=== PATIENT | female | born 1955 | race Caucasian/White ===

== ENCOUNTER → 2016-09-08 | Outpatient (CLI) | payer MEDICARE, OTHER ==
[2016-09-08 08:58] VITALS: BP 107/74; PULSE 78; RESP 16; TEMP 97.6; BMI 48.6
[2016-09-08 11:52] LABS: Anisocytosis Slight; CHCM 30.2; HCT 44.2 % (34.0-46.0); HDW 2.62; HGB 13.8 gm/dL (11.4-16.0); Hypochromasia Marked; MCHC 31.2 g/dL (31.0-37.0); MCV 89.6 fL (80.0-100.0); Mean Platelet Volume 8.3; RBC 4.93 m/uL (3.80-5.40); RDW 16.2 % (11.5-15.5); WBC 6.8 k/uL (3.8-10.6)
[2016-09-08 12:17] LABS: ALT 52 U/L (9-52); AST 73 U/L (14-36); Alkaline Phosphatase 87 U/L (38-126); Anion Gap 10 mmol/L; Blood Urea Nitrogen 15 mg/dL (7-17); Calcium 9.6 mg/dL (8.4-10.2); Carbon Dioxide 28 mmol/L (22-30); Chloride 103 mmol/L (98-107); Cholesterol 184 mg/dL (<200); Glucose 248 mg/dL (74-99); HDL Cholesterol 51 mg/dL (40-60); Iron 63 ug/dL (37-170); Non-African American GFR(MDRD) >60 (>60 ml/min/1.73 sqM); Potassium 5.5 mmol/L (3.5-5.1); Sodium 141 mmol/L (137-145); Total Protein 7.6 g/dL (6.3-8.2); Triglycerides 139 mg/dL (<150)
[2016-09-08 12:26] LABS: % Iron Saturation 17.6 % (20-50); Total Iron Binding Capacity 358 ug/dL (265-497)
[2016-09-08 13:21] LABS: Vitamin B12 300 pg/mL (239-931)
[2016-09-08 13:33] LABS: Hemoglobin A1C 8.5 % (4.2-6.1)
--- NOTE | 2016-09-15 17:16 | P.GSHP ---
History of Present Illness H&P Date: 09/08/16 Chief Complaint: Morbid obesity BMI 48 59 years old female with morbid obesity BMI 45, height 5 feet 6.25 inches, weight 127.45 KG presents for bariatric surgery consultation. Her ideal body weight based upon height is 59.4 kg . Patient has elected to undergo laparoscopic Alba-en-Y gastric bypass surgery. She has attended weight loss seminar. She has attempted nonsurgical weight loss with special diets . She has lost some weight but is unable to maintain sustained results. Her comorbid conditions include type 2 diabetes mellitus, obstructive sleep apnea, hypertension, history of PE, depression, coronary artery dease status post cardiac stents and pacemaker and skin cancer. She underwent EGD which showed Hill grade 1 hiatal hernia, distal esophagitis showing Veronica's changes without any dysplasia. H. pylori was negative. Had most of her workup done in 2016 however she did not follow through for surgery Height 5 feet 6.25 inches [place] body weight 59.4 kg Preoperative visit #1 03/26/2015, weight 127.45 KG, BMI 45 Preoperative visit #2 09/17/2015, weight 138.85 KG, BMI 49 Preoperative visit #3 09/08/2016, weight 137.5 KG, BMI 48 - Review of Systems Comment: Constitutional: Denies fever, weight loss or loss of appetite HEENT: No difficulty in vision or hearing. Denies dysphagia. Cardiovascular: Denies chest pain, palpitations, dizziness, shortness of breath. Respiratory: No history of asthma or COPD Gastrointestinal: No recent change in bowel habits, no abdominal pain, no nausea or vomiting. Integumentary: No history of DVT Genitourinary: No urinary incontinence, hematuria or dysuria Neurologic: No seizures, denies weakness in upper or lower extremities Musculoskeletal: Occasional left knee pain. Psychiatry: Known history of depression, no suicidal ideation, no anxiety or psychosis Past Medical History Past Medical History: Cancer, Diabetes Mellitus, Hypertension, Pulmonary Embolus (PE) Additional Past Medical History / Comment(s): skin cancer on face, PE yrs. ago History of Any Multi-Drug Resistant Organisms: None Reported Past Surgical History: Section, Cholecystectomy, Heart Catheterization , Heart Catheterization With Stent, Pacemaker Additional Past Surgical History / Comment(s): cyst r foot, carpal tunnel both hands, pacemaker insertion 2013 Past Anesthesia/Blood Transfusion Reactions: No Reported Reaction Date of Last Stent Placement:: 05/30/14 Type of Cardiac Device: Permanent Pacemaker Device Placement Date:: 05/30/13 Past Psychological History: Depression Smoking Status: Never smoker Past Alcohol Use History: Occasional Past Drug Use History: None Reported - Past Family History Father Family Medical History: Cancer, Coronary Artery Disease (CAD) Additional Family Medical History / Comment(s): skin Mother Family Medical History: Diabetes Mellitus, Renal Disease Brother(s) Family Medical History: Deep Vein Thrombosis (DVT) Medications and Allergies Home Medications Medication Instructions Recorded Confirmed Type Aspirin EC [Ecotrin] 81 mg PO DAILY 03/26/15 09/08/16 History Cholecalciferol [Vitamin D3] 5,000 unit PO DAILY@1200 03/26/15 09/08/16 History DULoxetine HCL [Cymbalta] 60 mg PO BID 03/26/15 09/08/16 History Docusate [Colace] 100 mg PO BID PRN 03/26/15 09/08/16 History Furosemide [Lasix] 20 mg PO BID 03/26/15 09/08/16 History HYDROcodone/APAP 7.5-325MG [[place] 1 each PO Q6HR PRN 03/26/15 09/08/16 History 7.5-325] Isosorbide Mononitrate ER [Imdur] 60 mg PO DAILY 03/26/15 09/08/16 History Metoprolol Tartrate 25 mg PO DAILY 03/26/15 09/08/16 History Nitroglycerin Sl Tabs [Nitrostat] 0.4 mg SUBLINGUAL Q5M PRN 03/26/15 09/08/16 History Potassium Chloride ER [K-Dur 20] 20 meq PO DAILY 03/26/15 09/08/16 History Ranolazine [Ranexa] 1,000 mg PO BID 03/26/15 09/08/16 History Zolpidem [Ambien] 10 mg PO HS PRN 03/26/15 09/08/16 History Insuln Asp Prt/Insulin Aspart 30 units SQ HS 04/30/15 09/08/16 History [NovoLOG MIX 70-30 VIAL] Insuln Asp Prt/Insulin Aspart 60 units SQ QAM 04/30/15 09/08/16 History [NovoLOG MIX 70-30 VIAL] Allergies Allergy/AdvReac Type Severity Reaction Status Date / Time lisinopril AdvReac Cough Verified 09/08/16 08:53 Surgical - Exam Vital Signs Temp Pulse Resp BP 97.6 F 78 16 107/74 09/08/16 08:43 09/08/16 08:43 09/08/16 08:43 09/08/16 08:43 General: Patient is alert and oriented to time, place and person and cooperative with exam. HEENT: No pallor, no icterus, no thyroid enlargement Chest: Bilateral equal breath sounds present. No wheezes, no crackles. Cardiovascular: Regular rate and rhythm. Abdomen: Soft, nontender, nondistended. Integumentary: Bilateral lower extremity chronic venous dermatitis. No active ulcers or discharge. Neurologic: Cranial nerves II-XII intact. Strength upper and lower extremities 5/5. No focal neurologic deficits. Gait is normal. Psychiatric: No anxiety or psychosis. No suicidal thoughts. Results - Labs 09/08/16 11:05 09/08/16 11:05 Assessment and Plan (1) Veronica esophagus Status: Acute (2) Coronary artery disease Status: Acute (3) Depression Status: Acute (4) Diabetes mellitus Status: Acute (5) Hypertension Status: Acute (6) Morbid obesity with BMI of 45.0-49.9, adult Status: Acute (7) Sleep apnea Status: Acute Plan: 1. A detailed discussion was held about the risks, benefits and potential complications of laparoscopic Alba-en-Y gastric bypass including bleeding, infection, anastomosis leak, stenosis, DVT and PE. Patient demonstrated understanding and willing to undergo the procedure. Patient was explained about high-protein liquid diet 2 weeks prior to surgery. 2. Formal Dietitian consult pending. She was recommended to drink protein shakes for snacks. I discussed about reducing the portion size, limiting refined carbohydrates and sugar and increase protein intake 3. EGD showed Hill grade 1 hiatal hernia and distal esophagitis consistent with Veronica's esophagitis without dysplasia. Findings were discussed with the patient and agreed to undergo laparoscopic Alba-en-Y gastric bypass with possible hiatal hernia repair. 4. Hemoglobin A1c 8.5 down from 9.1 Patient has appointment with adjunct instructor in economics for better diabetic management. Goal hemoglobin A1c less than 8 prior to surgery. 5. Mold Operator's recommendations awaited- seen two stock handler floorperson in 2016 / moderate risk - severe cardiomyopathy. Need reevaluation 6. Psychiatrist/ psychologist's recommendations in 2016. Will need reassessment 7. Bilateral lower extremity DVT Study- negative for DVT 8. Sleep studies - sleep apnea BIPAP recommended 9. Prior history of PE. VTE risk score 16. Medium risk and needs post discharge prophylactic Lovenox. Script in chart 10. Annual Screening mammogram
== END | disposition home or self-care (01) ==
LOC: BARWHC3 08:30
PROVIDERS: ATTEND Surgery
DX: Z01.818 Encounter for other preprocedural examination (principal); E66.01 Morbid (severe) obesity due to excess calories; Z68.42 Body mass index [BMI] 45.0-49.9, adult; D50.8 Other iron deficiency anemias; E44.0 Moderate protein-calorie malnutrition; E55.9 Vitamin D deficiency, unspecified; E11.9 Type 2 diabetes mellitus without complications; Z71.3 Dietary counseling and surveillance; I11.9 Hypertensive heart disease without heart failure; G47.30 Sleep apnea, unspecified; F32.9 Major depressive disorder, single episode, unspecified; I10 Essential (primary) hypertension; Z86.711 Personal history of pulmonary embolism; Z95.5 Presence of coronary angioplasty implant and graft; Z95.0 Presence of cardiac pacemaker; Z79.4 Long term (current) use of insulin; Z79.899 Other long term (current) drug therapy; Z88.8 Allergy status to other drugs, medicaments and biological substances; I25.10 Atherosclerotic heart disease of native coronary artery without angina pectoris; K20.9 Esophagitis, unspecified; K44.9 Diaphragmatic hernia without obstruction or gangrene
CPT/HCPCS: 84425; 80061; 80053; 82607; 82728; 83036; 82746; 83540; 83550; 84443; 85027; 82306; 97803; G0463; 99211

== ENCOUNTER → 2016-12-06 | Outpatient (CLI) | payer MEDICARE, OTHER ==
[2016-12-06 09:08] VITALS: BP 164/83; PULSE 79; RESP 16; TEMP 97.6; BMI 50.2
--- NOTE | 2016-12-06 12:55 | P.GSHP ---
History of Present Illness H&P Date: 12/06/16 Chief Complaint: Morbid Obesity 61 years old female with morbid obesity initial BMI 45, height 5 feet 6.25 inches, weight 127.45 KG presents for bariatric surgery consultation. Her ideal body weight based upon height is 59.4 kg . Patient has elected to undergo laparoscopic Alba-en-Y gastric bypass surgery. She has attended weight loss seminar. She has attempted nonsurgical weight loss with special diets . She has lost some weight but is unable to maintain sustained results. Her comorbid conditions include type 2 diabetes mellitus, obstructive sleep apnea, hypertension, history of PE, depression, coronary artery disease status post cardiac stents and pacemaker and skin cancer. She underwent EGD which showed Hill grade 1 hiatal hernia, distal esophagitis showing Veronica's changes without any dysplasia. H. pylori was negative.I habe discussed this with her multiple times but she seems not to remember the discussion. Had most of her workup done in 2015 however she did not follow through for surgery She has gained 10lbs since her last visit in August. Attributes to stress eating . Her daughter had "blood clots in her bowel" and is still recovering from her surgery. With her prior history of PE and daughter having blood clots, she will hypercoagulable work up and therefore consult with Dr. Hoang(Hem/onc) Patient feels stressed. Pyschiatry evalauation and recommendations noted. She is flagged at Problematic with concerns about coping with stress . Pyschotherapy recommended and she has not followed through. I am concerned about her dietary compliance Height 5 feet 6.25 inches [place] body weight 59.4 kg Preoperative visit #1 03/26/2015, weight 127.45 KG, BMI 45 Preoperative visit #2 09/17/2015, weight 138.85 KG, BMI 49 Preoperative visit #3 09/08/2016, weight 137.5 KG, BMI 48 Preoperative visit #4 12/06/2016, weight KG, BMI 50 - Review of Systems Comment: Constitutional: Denies fever, weight loss or loss of appetite HEENT: No difficulty in vision or hearing. Denies dysphagia. Cardiovascular: Denies chest pain, palpitations, dizziness, shortness of breath. Respiratory: No history of asthma or COPD Gastrointestinal: No recent change in bowel habits, no abdominal pain, no nausea or vomiting. Integumentary: No history of DVT Genitourinary: No urinary incontinence, hematuria or dysuria Neurologic: No seizures, denies weakness in upper or lower extremities Musculoskeletal: Occasional left knee pain. Uses cane for ambulation. Psychiatry: Known history of depression, no suicidal ideation, no anxiety or psychosis Past Medical History Past Medical History: Cancer, Diabetes Mellitus, Hypertension, Pulmonary Embolus (PE) Additional Past Medical History / Comment(s): skin cancer on face, PE yrs. ago History of Any Multi-Drug Resistant Organisms: None Reported Past Surgical History: Section, Cholecystectomy, Heart Catheterization , Heart Catheterization With Stent, Pacemaker Additional Past Surgical History / Comment(s): cyst r foot, carpal tunnel both hands, pacemaker insertion 2013 Past Anesthesia/Blood Transfusion Reactions: No Reported Reaction Date of Last Stent Placement:: 05/30/14 Type of Cardiac Device: Permanent Pacemaker Device Placement Date:: 05/30/13 Past Psychological History: Depression Smoking Status: Never smoker - Past Family History Father Family Medical History: Cancer, Coronary Artery Disease (CAD) Additional Family Medical History / Comment(s): skin Mother Family Medical History: Diabetes Mellitus, Renal Disease Brother(s) Family Medical History: Deep Vein Thrombosis (DVT) Medications and Allergies Home Medications Medication Instructions Recorded Confirmed Type Aspirin EC [Ecotrin] 81 mg PO DAILY 03/26/15 12/06/16 History Cholecalciferol [Vitamin D3] 5,000 unit PO DAILY@1200 03/26/15 12/06/16 History DULoxetine HCL [Cymbalta] 60 mg PO BID 03/26/15 12/06/16 History Docusate [Colace] 100 mg PO BID PRN 03/26/15 12/06/16 History Furosemide [Lasix] 20 mg PO BID 03/26/15 12/06/16 History HYDROcodone/APAP 7.5-325MG [[place] 1 each PO Q6HR PRN 03/26/15 12/06/16 History 7.5-325] Isosorbide Mononitrate ER [Imdur] 60 mg PO DAILY 03/26/15 12/06/16 History Metoprolol Tartrate 25 mg PO DAILY 03/26/15 12/06/16 History Nitroglycerin Sl Tabs [Nitrostat] 0.4 mg SUBLINGUAL Q5M PRN 03/26/15 12/06/16 History Potassium Chloride ER [K-Dur 20] 20 meq PO DAILY 03/26/15 12/06/16 History Ranolazine [Ranexa] 1,000 mg PO BID 03/26/15 12/06/16 History Zolpidem [Ambien] 10 mg PO HS PRN 03/26/15 12/06/16 History Insuln Asp Prt/Insulin Aspart 30 units SQ HS 04/30/15 12/06/16 History [NovoLOG MIX 70-30 VIAL] Insuln Asp Prt/Insulin Aspart 60 units SQ QAM 04/30/15 12/06/16 History [NovoLOG MIX 70-30 VIAL] Allergies Allergy/AdvReac Type Severity Reaction Status Date / Time lisinopril AdvReac Cough Verified 12/06/16 09:07 Surgical - Exam Vital Signs Temp Pulse Resp BP 97.6 F 79 16 164/83 12/06/16 08:51 12/06/16 08:51 12/06/16 08:51 12/06/16 08:51 Assessment and Plan (1) Morbid obesity with BMI of 50.0-59.9, adult Status: Acute (2) Veronica esophagus Status: Acute (3) Depression Status: Acute (4) Diabetes mellitus Status: Acute (5) Hypertension Status: Acute (6) Sleep apnea Status: Acute Plan: 1. A detailed discussion was held about the risks, benefits and potential complications of laparoscopic Alba-en-Y gastric bypass including bleeding, infection, anastomosis leak, stenosis, DVT and PE. Patient demonstrated understanding and willing to undergo the procedure. Patient was explained about high-protein liquid diet 2 weeks prior to surgery. 2. NEEDS Dietitian consult. She was recommended to drink protein shakes for snacks. I discussed about reducing the portion size, limiting refined carbohydrates and sugar and increase protein intake 3. EGD showed Hill grade 1 hiatal hernia and distal esophagitis consistent with Veronica's esophagitis without dysplasia. Findings were discussed with the patient again and agreed to undergo laparoscopic Alba-en-Y gastric bypass with possible hiatal hernia repair. 4. Hemoglobin A1c 8.5 down from 9.1 She now says she does not have an welfare worker. Check Hb A1c. Goal hemoglobin A1c less than 8 prior to surgery. 5. Audio Video Technician's recommendations noted : moderate risk 6. Psychiatrist/ psychologist's recommendations noted. PROBLEMATIC- needs pyschotherapy and nutrition classes. When asked about attending support group meeting, she states she has multiple friends and family member who have undergone the surgery. 7. Bilateral lower extremity DVT Study- negative for DVT 8. Sleep studies - sleep apnea BIPAP recommended and she is using it 9. Prior history of PE. VTE risk score 16. Family history of blood clots. Hem/ onc consult for hyperoagulable work up and perioperative anticoagulation management 10. Annual Screening mammogram- Done at [place]. Reports awaited
[2016-12-06 14:48] LABS: Hemoglobin A1C 9.5 % (4.2-6.1)
== END | disposition home or self-care (01) ==
LOC: BARWHC3 08:39
PROVIDERS: ATTEND Surgery
DX: E66.01 Morbid (severe) obesity due to excess calories (principal); K22.70 Barrett's esophagus without dysplasia; G47.30 Sleep apnea, unspecified; F32.9 Major depressive disorder, single episode, unspecified; E11.9 Type 2 diabetes mellitus without complications; I10 Essential (primary) hypertension; Z68.43 Body mass index [BMI] 50.0-59.9, adult; Z79.82 Long term (current) use of aspirin; Z79.4 Long term (current) use of insulin; Z79.899 Other long term (current) drug therapy; Z88.8 Allergy status to other drugs, medicaments and biological substances
CPT/HCPCS: 83036; 36415; G0463; 99211

== ENCOUNTER → 2016-12-28 | Outpatient (CLI) | payer MEDICARE, OTHER ==
[2016-12-28 11:04] VITALS: BMI 50.0
== END ==
LOC: MNTWWP 10:20
PROVIDERS: ATTEND Surgery
DX: E11.65 Type 2 diabetes mellitus with hyperglycemia (principal); E66.01 Morbid (severe) obesity due to excess calories; Z71.3 Dietary counseling and surveillance
CPT/HCPCS: 97802